=== PATIENT | male | born 1965 ===

== ENCOUNTER 2023-10-29 09:42 | Inpatient (IN) | payer OTHER ==
[~2023-10-29] VITALS: Ht 172.7 cm; Wt 81.8 kg
[2023-10-29 10:07] LABS: BASOPHILS % (AUTO) 1.4 % (0.0-2.0); EOSINOPHILS % (AUTO) 1.3 % (1.0-6.0); HEMATOCRIT 43.3 % (41-53); HEMOGLOBIN 14.8 g/dL (13.5-17.5); LYMPHOCYTES # (AUTO) 1.1 K/uL (1.0-4.8); MEAN CORPUSCULAR HEMOGLOBIN 33.2 pg (26.0-34.0); MEAN CORPUSCULAR HGB CONC 34.2 G/dL (31.0-37.0); MEAN CORPUSCULAR VOLUME 97 fL (80-100); MONOCYTES # (AUTO) 0.4 K/uL (0.1-1.0); MONOCYTES % (AUTO) 7.8 % (2.0-9.0); NEUTROPHILS # (AUTO) 3.1 K/uL (1.8-7.7); NEUTROPHILS % (AUTO) 65.5 % (40.0-70.0); PLATELET COUNT (AUTO) 318 K/uL (150-450); RED BLOOD CELL COUNT(AUTO) 4.47 MIL/uL (4.50-5.90); RED CELL DISTRIBUTION WIDTH 13.2 % (11.5-14.5); WHITE BLOOD COUNT (AUTO) 4.7 K/uL (4.5-11.0)
[2023-10-29 10:10] LABS: COVID AG,FIA SOURCE NASAL SWAB
[2023-10-29 10:13] LABS: SARS-COV2 (COVID) ANTIGEN,FIA Negative (Negative)
[2023-10-29 10:17] LABS: ANION GAP 11 mmol/L (8-16); CARBON DIOXIDE 26 mmol/L (22-29); CHLORIDE 110 mmol/L (98-107); CREATININE 1.03 mg/dL (0.60-1.30); GLOMERULAR FILTR. RATE CALC > 60 mL/min (>60); GLUCOSE,RANDOM 116 mg/dL (70-110); POTASSIUM 4.1 mmol/L (3.5-5.1); SODIUM SERUM 147 mmol/L (136-145); UREA NITROGEN, BLOOD 26 mg/dL (7-18)
[2023-10-29 10:25] LABS: TROPONIN I-HIGH SENSITIVITY 23 ng/L (<76)
[2023-10-29 10:28] LABS: INFLUENZA TYPE A NEGATIVE FOR TYPE A (NEGATIVE); INFLUENZA TYPE B NEGATIVE FOR TYPE B (NEGATIVE)
[2023-10-29 10:31] LABS: B-TYPE NATRIURETIC PEPTIDE 6 pg/mL (0-100)
[2023-10-29 10:43] LABS: ALANINE AMINOTRANSFERASE 31 U/L (12-78); ALBUMIN 3.9 g/dL (3.4-5.0); ALKALINE PHOSPHATASE 61 U/L (46-116); ASPARTATE AMINOTRANSFERASE 33 U/L (15-37); BILIRUBIN,TOTAL 0.7 mg/dL (0.1-1.0); CREATINE KINASE, TOTAL ONLY 350 U/L (39-308); TOTAL PROTEIN, SERUM 7.7 g/dL (6.4-8.2)
[2023-10-29] MEDS ORDERED: IPRATROPIUM BROMIDE 0.5 MG/2.5 ML NEB SOLUTION NEB PRN (14:15)
[2023-10-29] MEDS ORDERED: MORPHINE SULFATE 2 MG/ML SYRINGE IVP PRN (14:15)
[2023-10-29] MEDS ORDERED: HYDROCODONE/ACETAMINOPHEN 5-325 MG TABLET PO PRN (14:15)
[2023-10-29] MEDS ORDERED: ALBUTEROL SULFATE 2.5 MG/0.5 ML NEB SOLUTION NEB PRN (14:15)
[2023-10-29] MEDS ORDERED: BISACODYL 10 MG RECTAL RECTAL SUPPOSITORY PR PRN (14:15)
[2023-10-29] MEDS ORDERED: MAGNESIUM HYDROXIDE SUSPENSION 30 ML UDCUP PO PRN (14:15)
[2023-10-29] MEDS ORDERED: ONDANSETRON HCL 4 MG/2 ML VIAL IVP PRN (14:15)
[2023-10-29] MEDS ORDERED: ZOLPIDEM TARTRATE 5 MG TABLET PO PRN (14:15)
[2023-10-29] MEDS: SODIUM CHLORIDE 0.45% 1,000 ML IV SCH (14:59)
[2023-10-29] MEDS: HEPARIN SODIUM,PORCINE 5,000 UNITS/ML VIAL SQ SCH (16:53)
[2023-10-29 19:15] VITALS: BP 96/59; PULSE 67; RESP 18; TEMP 98
[2023-10-29 19:50] VITALS: PULSE 67; RESP 18; O2SAT 97
[2023-10-29] MEDS: DOCUSATE SODIUM 100 MG CAPSULE PO SCH (21:08)
[2023-10-29] MEDS ORDERED: 0.9% SODIUM CHLORIDE 5 ML NEB SOLUTION NEB ONE (21:38)
[2023-10-29] MEDS ORDERED: SODIUM CHLORIDE 3% 15 ML NEB SOLUTION NEB ONE (21:41)
[2023-10-29 22:25] VITALS: BP 102/55
[2023-10-30 05:19] VITALS: BP 130/77; PULSE 63; RESP 20; TEMP 97.9
[2023-10-30 06:09] LABS: EOSINOPHILS % (AUTO) 4.6 % (1.0-6.0); HEMATOCRIT 40.2 % (41-53); HEMOGLOBIN 13.8 g/dL (13.5-17.5); LYMPHOCYTES # (AUTO) 1.1 K/uL (1.0-4.8); MEAN CORPUSCULAR HEMOGLOBIN 33.4 pg (26.0-34.0); MEAN CORPUSCULAR HGB CONC 34.2 G/dL (31.0-37.0); MEAN CORPUSCULAR VOLUME 98 fL (80-100); MONOCYTES # (AUTO) 0.4 K/uL (0.1-1.0); MONOCYTES % (AUTO) 9.8 % (2.0-9.0); NEUTROPHILS # (AUTO) 2.1 K/uL (1.8-7.7); NEUTROPHILS % (AUTO) 55.6 % (40.0-70.0); PLATELET COUNT (AUTO) 288 K/uL (150-450); RED BLOOD CELL COUNT(AUTO) 4.13 MIL/uL (4.50-5.90); RED CELL DISTRIBUTION WIDTH 13.6 % (11.5-14.5); WHITE BLOOD COUNT (AUTO) 3.7 K/uL (4.5-11.0)
[2023-10-30 06:52] LABS: ALANINE AMINOTRANSFERASE 28 U/L (12-78); ALBUMIN 3.2 g/dL (3.4-5.0); ALKALINE PHOSPHATASE 53 U/L (46-116); ANION GAP 4 mmol/L (8-16); ASPARTATE AMINOTRANSFERASE 27 U/L (15-37); BILIRUBIN,TOTAL 0.6 mg/dL (0.1-1.0); CALCIUM, TOTAL 8.4 mg/dL (8.8-10.5); CARBON DIOXIDE 30 mmol/L (22-29); CHLORIDE 103 mmol/L (98-107); CREATINE KINASE, TOTAL ONLY 211 U/L (39-308); CREATININE 1.08 mg/dL (0.60-1.30); GLOMERULAR FILTR. RATE CALC > 60 mL/min (>60); GLUCOSE,RANDOM 98 mg/dL (70-110); POTASSIUM 3.8 mmol/L (3.5-5.1); SODIUM SERUM 137 mmol/L (136-145); TOTAL PROTEIN, SERUM 6.6 g/dL (6.4-8.2); UREA NITROGEN, BLOOD 23 mg/dL (7-18)
[2023-10-30] MEDS ORDERED: SODIUM CHLORIDE 3% 15 ML NEB SOLUTION NEB ONE (07:11)
[2023-10-30] MEDS: PANTOPRAZOLE SODIUM 40 MG/VIAL IVP SCH (09:11)
[2023-10-30 09:24] VITALS: BP 122/73; PULSE 59; RESP 19; TEMP 97.7
[2023-10-30 17:37] LABS: MTB PCR w/Rif. Resistance-SPUT NOT DETECTED (Not Detectd)
[2023-10-30 17:38] LABS: MTB PCR w/Rif. Resistance-SPUT NOT DETECTED (Not Detectd)
[2023-10-30 20:08] VITALS: BP 124/59; PULSE 60; RESP 18; TEMP 98.3
[2023-10-31 05:04] VITALS: BP 123/76; PULSE 64; RESP 18; TEMP 97.8
[2023-10-31] MEDS: PANTOPRAZOLE SODIUM 40 MG DR TABLET PO SCH (07:54)
[2023-10-31 08:56] VITALS: BP 127/66; PULSE 64; RESP 18; TEMP 98
[2023-10-31 12:06] LABS: QUANTIFERON+, Nil Value 0.06 IU/mL; QUANTIFERON+,Mitogen Value >10.00 IU/mL; QUANTIFERON+,TB1 Antigen Value 0.09 IU/mL; QUANTIFERON+,TB2 Antigen Value 0.09 IU/mL; QUANTIFERON, TB GOLD PLUS Negative (Negative)
[2023-10-31 20:58] VITALS: BP 106/74; PULSE 69; RESP 18; TEMP 97.9
[2023-11-01 06:07] VITALS: BP 126/79; PULSE 59; RESP 18; TEMP 97.8
[2023-11-01 08:13] VITALS: BP 118/78; PULSE 63; RESP 18; TEMP 97.9
[2023-11-01 15:57] VITALS: BP 126/72; PULSE 64; RESP 18; TEMP 98.2
[2023-11-01 19:28] VITALS: BP 124/67; PULSE 62; RESP 18; TEMP 97.9
[2023-11-01] MEDS: ACETAMINOPHEN 325 MG TABLET PO PRN (20:23)
[2023-11-02 04:06] LABS: HIV 1-2 SCREEN 4TH GEN W/RFLX Preliminary Reactive (Non Reactive); HIV INTERPRETATION HIV-1 Positive; HIV-1 ANTIBODY(MULTISPOT) Reactive (Non Reactive); HIV-2 ANTIBODY(MULTISPOT) Non Reactive (Non Reactive)
[2023-11-02 04:44] VITALS: BP 128/85; PULSE 62; RESP 18; TEMP 97.5
[2023-11-02 08:15] VITALS: BP 116/76; PULSE 63; RESP 18; TEMP 98.6
[2023-11-02 19:18] VITALS: BP 118/72; PULSE 63; RESP 18; TEMP 97.5
[2023-11-03 04:00] VITALS: BP 121/88; PULSE 66; RESP 18; TEMP 97.7
[2023-11-03 07:40] VITALS: BP 127/79; PULSE 59; RESP 18; TEMP 98.3
[2023-11-03 20:39] VITALS: BP 109/71; PULSE 59; RESP 18; TEMP 98.2
[2023-11-04 04:45] VITALS: BP 126/87; PULSE 65; RESP 18; TEMP 98
[2023-11-04 08:19] VITALS: BP 102/63; PULSE 63; RESP 18; TEMP 97.7
[2023-11-04 11:06] LABS: ANTI JO-1 (t-RNA Synthethase) <0.2 AI (0.0-0.9); ANTI NUCLEAR AB,DIRECT(SCREEN) Negative (Negative)
[2023-11-04 19:51] VITALS: BP 130/76; PULSE 63; RESP 18; TEMP 97.4
[2023-11-05 02:02] LABS: APPEARANCE,URINE CLEAR (CLEAR); BILIRUBIN,URINE NEGATIVE (NEGATIVE); COLOR,URINE YELLOW (YELLOW); GLUCOSE, URINE (UA) TRACE mg/dL (NEGATIVE); KETONES,URINE NEGATIVE (NEGATIVE); LEUKOCYTE ESTERASE ,URINE NEGATIVE (NEGATIVE); NITRATE,URINE NEGATIVE (NEGATIVE); OCCULT BLOOD,URINE NEGATIVE (NEGATIVE); PH,URINE 5.5 (5.0-8.0); PROTEIN,URINE TRACE mg/dL (NEGATIVE); SPECIFIC GRAVITIY, URINE 1.036 (1.003-1.030); UROBILINOGEN,URINE <=1.0 mg/dL (<=1.0)
[2023-11-05 05:03] VITALS: BP 121/71; PULSE 63; RESP 18; TEMP 97.9
[2023-11-05 07:12] LABS: PROTHROMBIN TIME 10.5 SEC (9.4-11.6)
[2023-11-05 11:37] VITALS: BP 112/68; PULSE 59; RESP 20; TEMP 97.8
[2023-11-05 13:07] LABS: ATYPICAL P-ANCA AB <1:20 titer (Neg:<1:20); CYTOPLASMIC (C-ANCA) AB, IGG <1:20 titer (Neg:<1:20)
[2023-11-05 20:27] VITALS: BP 102/68; PULSE 62; RESP 18; TEMP 98.1
[2023-11-06 04:34] VITALS: BP 121/75; PULSE 62; RESP 18; TEMP 97.8
[2023-11-06] MEDS: BICTEGRAV/EMTRICIT/TENOFOV ALA 50-200-25 MG TABLET PO SCH (09:00)
[2023-11-06 09:02] VITALS: BP 110/69; PULSE 61; RESP 18; TEMP 97.7
[2023-11-06 15:46] VITALS: BP 106/71; PULSE 67; RESP 18; TEMP 97.7
[2023-11-06] MEDS ORDERED: MIDAZOLAM HCL 2 MG/2 ML VIAL ONE (17:31)
[2023-11-06] MEDS ORDERED: FentaNYL CITRATE PF 100 MCG/2 ML VIAL ONE (17:31)
[2023-11-06] MEDS ORDERED: LIDOCAINE/PF 1% 30 ML VIAL ONE (18:13)
[2023-11-06] MEDS ORDERED: SODIUM BICARBONATE 50 MEQ/50 ML VIAL ONE (18:13)
[2023-11-06] MEDS: FentaNYL CITRATE PF 100 MCG/2 ML VIAL IVP ONE ×2 (19:11→19:13)
[2023-11-06] MEDS: MIDAZOLAM HCL 2 MG/2 ML VIAL IVP ONE (19:12)
[2023-11-06] MEDS: LIDOCAINE 1% 30 ML/SOD BICARB 8.4% 4 ML SQ ONE (19:12)
[2023-11-06 20:33] VITALS: BP 107/62; PULSE 61; RESP 18; TEMP 97.8
[2023-11-07 05:13] VITALS: BP 118/73; PULSE 65; RESP 18; TEMP 97.6
[2023-11-07 06:06] LABS: LYMPHS % FOR CD4 COUNT 24 % (Not Estab.); WBC FOR CD4 COUNT 4.2 x10E3/uL (3.4-10.8)
[2023-11-07 07:55] VITALS: BP 113/75; PULSE 72; RESP 18; TEMP 97.8
[2023-11-07 09:07] LABS: ABSOLUTE CD4 COUNT 221 /uL (359-1519); PERCENT CD4 CELLS 22.1 % (30.8-58.5)
[2023-11-07 15:50] VITALS: BP 122/78; PULSE 74; RESP 18; TEMP 98.2
[2023-11-07 17:07] LABS: COCCI IGG TITER COMP.FIX-KERN <1:2; COCCIOIDES AB IGG (ID)-KERN Reactive; COCCIOIDES AB IGM (ID)-KERN Non Reactive
[2023-11-07 19:38] VITALS: BP 125/72; PULSE 63; RESP 18; TEMP 98.4
[2023-11-08 04:52] VITALS: BP 121/76; PULSE 59; RESP 18; TEMP 98
[2023-11-08 08:00] VITALS: BP 118/65; PULSE 62; RESP 18; TEMP 98.2
[2023-11-08 19:45] VITALS: BP 112/64; PULSE 61; RESP 18; TEMP 97.7
[2023-11-09 04:14] VITALS: BP 122/77; PULSE 57; RESP 18; TEMP 98.1
[2023-11-09 09:46] VITALS: BP 124/73; PULSE 54; RESP 19; TEMP 97.6
[2023-11-09 20:34] VITALS: BP 124/71; PULSE 60; RESP 16; TEMP 98.1
[2023-11-10 04:20] VITALS: BP 122/78; PULSE 57; RESP 18; TEMP 97.9
[2023-11-10 09:28] VITALS: BP 117/72; PULSE 56; RESP 18; TEMP 98.7
[2023-11-10 20:47] VITALS: BP 111/64; PULSE 60; RESP 18; TEMP 98.1
[2023-11-11 04:15] VITALS: BP 114/69; PULSE 53; RESP 20; TEMP 98.5
[2023-11-11 07:06] LABS: U HISTOPLASMA GALACTOMANNAN AG Negative (<0.5 ng/mL)
[2023-11-11 08:43] VITALS: BP 118/70; PULSE 58; RESP 19; TEMP 98.7
[2023-11-11 12:52] LABS: BASOPHILS % (AUTO) 2.5 % (0.0-2.0); EOSINOPHILS % (AUTO) 1.8 % (1.0-6.0); HEMATOCRIT 43.2 % (41-53); HEMOGLOBIN 14.7 g/dL (13.5-17.5); LYMPHOCYTES # (AUTO) 1.4 K/uL (1.0-4.8); LYMPHOCYTES % (AUTO) 29.7 % (22.0-44.0); MEAN CORPUSCULAR VOLUME 97 fL (80-100); MONOCYTES # (AUTO) 0.4 K/uL (0.1-1.0); MONOCYTES % (AUTO) 9.6 % (2.0-9.0); NEUTROPHILS # (AUTO) 2.6 K/uL (1.8-7.7); NEUTROPHILS % (AUTO) 56.4 % (40.0-70.0); PLATELET COUNT (AUTO) 291 K/uL (150-450); RED BLOOD CELL COUNT(AUTO) 4.46 MIL/uL (4.50-5.90); RED CELL DISTRIBUTION WIDTH 13.3 % (11.5-14.5); WHITE BLOOD COUNT (AUTO) 4.7 K/uL (4.5-11.0)
[2023-11-11 13:02] LABS: ANION GAP 6 mmol/L (8-16); CALCIUM, TOTAL 9.2 mg/dL (8.8-10.5); CARBON DIOXIDE 29 mmol/L (22-29); CHLORIDE 100 mmol/L (98-107); CREATININE 1.14 mg/dL (0.60-1.30); GLOMERULAR FILTR. RATE CALC > 60 mL/min (>60); GLUCOSE,RANDOM 143 mg/dL (70-110); POTASSIUM 3.8 mmol/L (3.5-5.1); SODIUM SERUM 135 mmol/L (136-145); UREA NITROGEN, BLOOD 18 mg/dL (7-18)
[2023-11-11 13:16] LABS: ALANINE AMINOTRANSFERASE 38 U/L (12-78); ALBUMIN 3.4 g/dL (3.4-5.0); ALKALINE PHOSPHATASE 61 U/L (46-116); ASPARTATE AMINOTRANSFERASE 33 U/L (15-37); BILIRUBIN,TOTAL 0.3 mg/dL (0.1-1.0); TOTAL PROTEIN, SERUM 7.1 g/dL (6.4-8.2)
[2023-11-11 19:56] VITALS: BP 115/72; PULSE 63; RESP 18; TEMP 97.6
[2023-11-12 04:37] VITALS: BP 119/72; PULSE 57; RESP 18; TEMP 98.6
[2023-11-12 08:27] VITALS: BP 120/74; PULSE 63; RESP 19; TEMP 97.9
[2023-11-13 05:26] VITALS: BP 116/66; PULSE 63; RESP 18; TEMP 98
[2023-11-13 09:08] VITALS: BP 129/78; PULSE 52; RESP 20; TEMP 97.5
[2023-11-13 20:25] VITALS: BP 114/70; PULSE 59; RESP 18; TEMP 98.5
[2023-11-14 04:32] VITALS: BP 112/73; PULSE 54; RESP 18; TEMP 98.2
[2023-11-14 08:56] VITALS: BP 107/62; PULSE 62; RESP 19; TEMP 97.7
[2023-11-14 19:52] VITALS: BP 109/67; PULSE 60; RESP 18; TEMP 97.6
[2023-11-15 03:18] VITALS: BP 123/76; PULSE 63; RESP 18; TEMP 97.7
[2023-11-15 08:18] VITALS: BP 124/72; PULSE 61; RESP 18; TEMP 98
[2023-11-15 19:41] VITALS: BP 120/84; PULSE 64; RESP 18; TEMP 98.1
[2023-11-16 05:00] VITALS: BP 119/75; PULSE 60; RESP 18; TEMP 98.6
[2023-11-16 08:19] VITALS: BP 122/78; PULSE 64; RESP 18; TEMP 98.2
[2023-11-16 13:06] LABS: ASPERGILLUS FLAVUS AB QUAN-DID Negative (Neg:<1:1); ASPERGILLUS FUMIGATUS AB-DID Negative (Neg:<1:1); ASPERGILLUS NIGER AB QUAN-DID Negative (Neg:<1:1)
[2023-11-16 17:33] VITALS: BP 126/74; PULSE 68; RESP 18; TEMP 98.4
[2023-11-16 19:45] VITALS: BP 107/63; PULSE 60; RESP 18; TEMP 97.7
[2023-11-17 06:01] VITALS: BP 114/74; PULSE 60; RESP 16; TEMP 98.5
[2023-11-17 08:02] VITALS: BP 106/69; PULSE 50; RESP 18; TEMP 98
[2023-11-17 15:41] VITALS: BP 114/74; PULSE 59; RESP 18; TEMP 97.9
[2023-11-17 19:52] VITALS: BP 131/68; PULSE 63; RESP 18; TEMP 97.8
[2023-11-18 02:27] VITALS: BP 112/70; PULSE 56; RESP 18; TEMP 97.9
[2023-11-18 08:07] VITALS: BP 141/90; PULSE 72; RESP 19; TEMP 98.7
[2023-11-18 09:16] LABS: BASOPHILS % (AUTO) 1.4 % (0.0-2.0); EOSINOPHILS % (AUTO) 2.6 % (1.0-6.0); HEMATOCRIT 42.4 % (41-53); HEMOGLOBIN 14.8 g/dL (13.5-17.5); LYMPHOCYTES # (AUTO) 1.3 K/uL (1.0-4.8); LYMPHOCYTES % (AUTO) 29.4 % (22.0-44.0); MEAN CORPUSCULAR HEMOGLOBIN 33.2 pg (26.0-34.0); MEAN CORPUSCULAR HGB CONC 34.8 G/dL (31.0-37.0); MEAN CORPUSCULAR VOLUME 95 fL (80-100); MONOCYTES # (AUTO) 0.4 K/uL (0.1-1.0); MONOCYTES % (AUTO) 8.1 % (2.0-9.0); NEUTROPHILS # (AUTO) 2.7 K/uL (1.8-7.7); NEUTROPHILS % (AUTO) 58.5 % (40.0-70.0); PLATELET COUNT (AUTO) 302 K/uL (150-450); RED BLOOD CELL COUNT(AUTO) 4.45 MIL/uL (4.50-5.90); RED CELL DISTRIBUTION WIDTH 13.7 % (11.5-14.5); WHITE BLOOD COUNT (AUTO) 4.6 K/uL (4.5-11.0)
[2023-11-18 09:31] LABS: ALBUMIN 3.5 g/dL (3.4-5.0); BILIRUBIN,TOTAL 0.3 mg/dL (0.1-1.0); CALCIUM, TOTAL 9.2 mg/dL (8.8-10.5); CREATININE 1.38 mg/dL (0.60-1.30); POTASSIUM 3.5 mmol/L (3.5-5.1); TOTAL PROTEIN, SERUM 7.3 g/dL (6.4-8.2)
[2023-11-18 20:11] VITALS: BP 111/71; PULSE 63; RESP 20; TEMP 98.3
[2023-11-19 04:53] VITALS: BP 121/89; PULSE 57; RESP 18; TEMP 98.6
[2023-11-19 08:28] VITALS: BP 122/73; PULSE 58; RESP 18; TEMP 98.2
[2023-11-19] MEDS: SODIUM CHLORIDE 0.9% 1,000 ML IV ONE (13:13)
[2023-11-19 20:37] VITALS: BP 108/67; PULSE 58; RESP 20; TEMP 98.1
[2023-11-20 04:20] VITALS: BP 102/68; PULSE 55; RESP 20; TEMP 97.5
[2023-11-20 09:34] VITALS: BP 169/90; PULSE 72; RESP 20; TEMP 98
[2023-11-20] MEDS ORDERED: BICT1TAB PO (14:18)
[2023-11-20 15:00] VITALS: BP 128/74; PULSE 65; RESP 19
== END 2023-11-20 17:20 | DRG 558 ==
LOC: EMS 09:46 → 6S 13:24
PROVIDERS: ADMIT Hospitalist; ATTEND Hospitalist
PROC: 0BJK3ZZ Inspection of Right Lung, Percutaneous Approach (ICD-10-PCS; principal; 2023-10-29)
DX: M62.82 Rhabdomyolysis (principal); E87.0 Hyperosmolality and hypernatremia; E86.0 Dehydration; I10 Essential (primary) hypertension; R07.89 Other chest pain; Z20.822 Contact with and (suspected) exposure to COVID-19; N28.9 Disorder of kidney and ureter, unspecified; J06.9 Acute upper respiratory infection, unspecified; R91.1 Solitary pulmonary nodule; Z79.899 Other long term (current) drug therapy; Z78.9 Other specified health status; Z90.49 Acquired absence of other specified parts of digestive tract
CPT/HCPCS: 32408; 71045; 71250; 80053; 81003; 82550; 83605; 83880; 84484; 85025; 85610; 85730; 86038; 86171; 86225; 86235; 86256; 86361; 86403; 86480; 86606; 86635; 87015; 87040; 87081; 87150; 87206; 87305; 87385; 87389; 87536; 87556; 87804; 93005; 94640; 99285; C9113; J1644; J2250; J3010; J3490; J7030; Q9967; 36415-L1; 36415-TC